=== PATIENT | male | born 1950 | race Caucasian/White ===

== ENCOUNTER → 2017-07-11 | Day surgery (SDC) | payer MEDICARE, BC ==
[~2017-07-11] MED LIST: ATROPINE SULFATE 1 MG VIAL IV ONE; GLYCOPYRROLATE 1 MG/5 ML VIAL. IV ONE; IV RINGERS SOLUTION,LACTATED 1,000 ML IV ONE; LIDOCAINE 2% PF Vial for OR 5 ML VIAL. ONE; PROPOFOL 20 ML IV ONE
== END | disposition home or self-care (01) ==
LOC: SURG 07:09
PROVIDERS: ATTEND Internal Medicine Gastroenterology
DX: Z09 Encounter for follow-up examination after completed treatment for conditions other than malignant neoplasm (principal); Z86.010 Personal history of colon polyps; K62.1 Rectal polyp; K63.5 Polyp of colon; E78.5 Hyperlipidemia, unspecified; K57.30 Diverticulosis of large intestine without perforation or abscess without bleeding; I10 Essential (primary) hypertension; Z98.890 Other specified postprocedural states; Z85.828 Personal history of other malignant neoplasm of skin; Z91.041 Radiographic dye allergy status
CPT/HCPCS: 45378; 45385; J2704; J7120; J2001